=== PATIENT | male | born 1940 | race Caucasian/White ===

== ENCOUNTER 2021-08-28 17:38 | Inpatient (IN) ==
[2021-08-29] MEDS ORDERED: *HR* OxyCODONE Immed Rel 5 MG TABLET PO SCH (01:00)
[2021-08-29] MEDS ORDERED: *HR* OxyCODONE Immed Rel 5 MG TABLET PO PRN (02:22)
[2021-08-29] MEDS: Multivit/Ca/Min/Fe/FA 1 TAB TABLET PO SCH (09:29)
[2021-08-29] MEDS: Aspirin Enteric Coated 325 MG Tablet PO SCH (09:29)
[2021-08-29] MEDS: (Anoro Ellipta 62.5-2) IH SCH (09:37)
[2021-08-29] MEDS: Sennosides/Docusate Sodium TABLET PO SCH (21:24)
[2021-08-30] MEDS: Multivit/Ca/Min/Fe/FA 1 TAB TABLET PO SCH (08:52)
[2021-08-30] MEDS: Aspirin Enteric Coated 325 MG Tablet PO SCH (08:52)
[2021-08-30] MEDS: Sennosides/Docusate Sodium TABLET PO SCH ×2 (08:53→20:07)
[2021-08-30] MEDS: (Anoro Ellipta 62.5-2) IH SCH (10:07)
[2021-08-31] MEDS: Multivit/Ca/Min/Fe/FA 1 TAB TABLET PO SCH (08:29)
[2021-08-31] MEDS: Aspirin Enteric Coated 325 MG Tablet PO SCH (08:29)
[2021-08-31] MEDS: Sennosides/Docusate Sodium TABLET PO SCH ×2 (08:29→19:54)
[2021-08-31] MEDS: (Anoro Ellipta 62.5-2) IH SCH (09:29)
[2021-08-31 11:48] LABS: Basophils % 0.5 %; Eosinophils # 0.2 K/mcL (0.0-0.6); Eosinophils % 2.9 %; Hematocrit 33.7 % (37.5-50.1); Hemoglobin 11.1 g/dL (12.9-16.9); Lymphocytes # 1.1 K/mcL (0.6-4.6); Lymphocytes % 12.8 %; Mean Corpuscular HGB Conc 32.9 g/dL (31.6-35.5); Mean Corpuscular Hemoglobin 31.3 pg (28.0-33.3); Mean Corpuscular Volume 94.9 fL (83.0-100.0); Mean Platelet Volume 9.6 fL (9.4-12.4); Monocytes # 1.2 K/mcL (0.0-1.3); Monocytes % 14.6 %; Neutrophils # 5.7 K/mcL (1.6-8.9); Platelet Count 333 K/mcL (140-400); Red Blood Count 3.55 M/mcL (4.19-5.50); Red Cell Distribution Width 13.5 % (11.5-14.5); Segmented Neutrophils % 68.2 %; White Blood Count 8.4 K/mcL (4.3-11.1)
[2021-08-31 12:02] LABS: BUN/Creatinine Ratio 28 (6-26); Blood Urea Nitrogen 26 mg/dL (8-23); Calcium 8.9 mg/dL (8.6-10.3); Carbon Dioxide 28 mEq/L (23-29); Chloride 101 mEq/L (98-107); Glucose 109 mg/dL (70-105); Osmolality,Calculated 289 (280-300); Potassium 4.2 mEq/L (3.5-5.1); Sodium 137 mEq/L (136-145); eGFR For African Americans > 60 (> 60); eGFR For Non-African Americans > 60 (> 60)
[2021-08-31] MEDS: Acetaminophen 325 MG TABLET PO PRN (12:53)
[2021-09-01] MEDS: Aspirin Enteric Coated 325 MG Tablet PO SCH (08:35)
[2021-09-01] MEDS: Sennosides/Docusate Sodium TABLET PO SCH (08:36)
[2021-09-01] MEDS: (Anoro Ellipta 62.5-2) IH SCH (08:36)
[2021-09-01] MEDS: Multivit/Ca/Min/Fe/FA 1 TAB TABLET PO SCH (08:36)
[2021-09-02] MEDS: Sennosides/Docusate Sodium TABLET PO SCH (08:50)
[2021-09-02] MEDS: Aspirin Enteric Coated 325 MG Tablet PO SCH (08:51)
[2021-09-02] MEDS: (Anoro Ellipta 62.5-2) IH SCH (08:51)
[2021-09-02] MEDS: Multivit/Ca/Min/Fe/FA 1 TAB TABLET PO SCH (08:51)
[2021-09-03] MEDS: Sennosides/Docusate Sodium TABLET PO SCH (09:34)
[2021-09-03] MEDS: Multivit/Ca/Min/Fe/FA 1 TAB TABLET PO SCH (09:34)
[2021-09-03] MEDS: Aspirin Enteric Coated 325 MG Tablet PO SCH (09:34)
[2021-09-03] MEDS: (Anoro Ellipta 62.5-2) IH SCH (09:35)
[2021-09-03] MEDS: Acetaminophen 325 MG TABLET PO PRN ×2 (10:42→19:36)
[2021-09-04] MEDS: Sennosides/Docusate Sodium TABLET PO SCH (08:33)
[2021-09-04] MEDS: Multivit/Ca/Min/Fe/FA 1 TAB TABLET PO SCH (08:34)
[2021-09-04] MEDS: Aspirin Enteric Coated 325 MG Tablet PO SCH (08:34)
[2021-09-04] MEDS: (Anoro Ellipta 62.5-2) IH SCH (10:12)
[2021-09-04] MEDS: Acetaminophen 325 MG TABLET PO PRN ×2 (13:04→22:03)
[2021-09-05] MEDS: Aspirin Enteric Coated 325 MG Tablet PO SCH (09:12)
[2021-09-05] MEDS: Multivit/Ca/Min/Fe/FA 1 TAB TABLET PO SCH (09:13)
[2021-09-05] MEDS: Sennosides/Docusate Sodium TABLET PO SCH (09:13)
[2021-09-05] MEDS: (Anoro Ellipta 62.5-2) IH SCH (09:14)
[2021-09-05] MEDS: Acetaminophen 325 MG TABLET PO PRN ×2 (16:03→22:01)
[2021-09-06 08:09] LABS: Hematocrit 37.6 % (37.5-50.1); Hemoglobin 12.3 g/dL (12.9-16.9); Mean Corpuscular HGB Conc 32.7 g/dL (31.6-35.5); Mean Corpuscular Hemoglobin 31.2 pg (28.0-33.3); Mean Corpuscular Volume 95.4 fL (83.0-100.0); Mean Platelet Volume 9.5 fL (9.4-12.4); Platelet Count 380 K/mcL (140-400); Red Blood Count 3.94 M/mcL (4.19-5.50); Red Cell Distribution Width 14.1 % (11.5-14.5); White Blood Count 6.6 K/mcL (4.3-11.1)
[2021-09-06 08:29] LABS: BUN/Creatinine Ratio 23 (6-26); Blood Urea Nitrogen 21 mg/dL (8-23); Calcium 9.2 mg/dL (8.6-10.3); Carbon Dioxide 30 mEq/L (23-29); Chloride 100 mEq/L (98-107); Glucose 97 mg/dL (70-105); Osmolality,Calculated 285 (280-300); Potassium 4.1 mEq/L (3.5-5.1); Sodium 136 mEq/L (136-145); eGFR For African Americans > 60 (> 60); eGFR For Non-African Americans > 60 (> 60)
[2021-09-06] MEDS: Acetaminophen 325 MG TABLET PO PRN ×2 (09:01→21:08)
[2021-09-06] MEDS: Aspirin Enteric Coated 325 MG Tablet PO SCH (09:01)
[2021-09-06] MEDS: Multivit/Ca/Min/Fe/FA 1 TAB TABLET PO SCH (09:01)
[2021-09-06] MEDS: Sennosides/Docusate Sodium TABLET PO SCH (09:01)
[2021-09-06] MEDS: (Anoro Ellipta 62.5-2) IH SCH (11:21)
[2021-09-06 22:03] VITALS: BP 128/78; PULSE 72; RESP 16; TEMP 97.4; O2SAT 96
[2021-09-07] MEDS: Sennosides/Docusate Sodium TABLET PO SCH (08:34)
[2021-09-07] MEDS: Multivit/Ca/Min/Fe/FA 1 TAB TABLET PO SCH (08:34)
[2021-09-07] MEDS: Aspirin Enteric Coated 325 MG Tablet PO SCH (08:34)
[2021-09-07] MEDS: (Anoro Ellipta 62.5-2) IH SCH (08:35)
== END 2021-09-07 12:20 | disposition home health service (06) | DRG 561 ==
LOC: INPPIK 08-29 00:25
PROVIDERS: ADMIT Family Medicine; ATTEND Family Medicine